=== PATIENT | male | born 1980 | race African-American/Black ===

== ENCOUNTER 2016-10-09 10:22 | Emergency (ER) | payer MEDICAID ==
[~2016-10-09] VITALS: Ht 175.3 cm; Wt 109.0 kg
[2016-10-09 10:42] VITALS: BP 141/89
[2016-10-09] MEDS ORDERED: ACETAMINOPHEN 500MG TABLET PO ONE (11:15)
== END 2016-10-09 12:00 | disposition home or self-care (01) ==
LOC: ER 11:08
DX: B34.9 Viral infection, unspecified (principal)
CPT/HCPCS: 99282

== ENCOUNTER 2019-04-06 23:51 | Emergency (ER) | payer SELFPAY ==
[~2019-04-06] VITALS: Ht 175.3 cm; Wt 109.0 kg
[2019-04-07] MEDS ORDERED: SODIUM CHLORIDE 0.9% 1,000 ML IV ONE (00:59)
[2019-04-07] MEDS ORDERED: ONDANSETRON HCL 4MG/2ML INJ IV STA (00:59)
[2019-04-07] MEDS ORDERED: FAMOTIDINE 20MG/2ML VIAL IV ONE (01:00)
[2019-04-07 01:29] LABS: BASOPHILS % 0.3 % (0.0-2.0); HEMATOCRIT. 45.9 % (42.0-52.0); HEMOGLOBIN. 15.4 g/dL (14.0-18.0); LYMPHOCYTES % 7.8 % (20.0-50.0); MEAN CORPUSCULAR HEMOGLOBIN 30.2 pg (28.0-32.0); MEAN PLATELET VOLUME 7.5 fl (7.4-10.4); MONOCYTES % 3.7 % (2.0-8.0); NEUTROPHILS % 88.2 % (40.0-76.0); PLATELET 243 x1000/uL (130-400)
[2019-04-07 01:36] LABS: CHLORIDE 105 mEq/L (98-107)
[2019-04-07 01:45] LABS: PROTHROMBIN TIME 10.3 sec (9.6-11.0)
[2019-04-07] MEDS ORDERED: KETOROLAC 30MG/ML VIAL IV ONE (02:00)
[2019-04-07 02:20] LABS: CLARITY URINE CLEAR (CLEAR); COLOR URINE YELLOW (YELLOW); KETONES URINE 2+ (NEGATIVE); LEUKOCYTE ESTERASE URINE NEGATIVE (NEGATIVE); NITRITE URINE NEGATIVE (NEGATIVE); OCCULT BLOOD URINE NEGATIVE (NEGATIVE); PH URINE 8.5 (4.5-8.0); PROTEIN URINE NEGATIVE (NEGATIVE); SPECIFIC GRAVITY URINE 1.017 (1.005-1.030)
[2019-04-07 04:56] VITALS: BP 133/84
== END 2019-04-07 05:36 | disposition home or self-care (01) ==
LOC: ER 23:51
DX: R10.13 Epigastric pain (principal)
CPT/HCPCS: 36415; 80053; 81003; 83690; 85025; 85610; 96361; 96374; 96375; 99283; J1885; J2405; J3490; J7030; Z7610